=== PATIENT | female | born 1955 | race Caucasian/White ===

== ENCOUNTER 2025-04-25 18:27 | Inpatient (IN) | payer OTHER, MEDICARE ==
[~2025-04-25] VITALS: Ht 165.1 cm; Wt 63.1 kg
[2025-04-25] MEDS ORDERED: Morphine Sulfate 4 MG/1 ML Injection IV ONE (19:15)
[2025-04-25] MEDS ORDERED: HYDROmorphone HCl/Pf 1MG SYR IV ONE (19:30)
[2025-04-25 19:52] LABS: BASOPHILS ABSOLUTE AUTO 0.07 K/mm3 (0.00-0.23); BASOPHILS PERCENT AUTO 1 % (0-2); EOSINOPHILS ABSOLUTE AUTO 0.08 K/mm3 (0.00-0.68); EOSINOPHILS PERCENT AUTO 1 % (0-6); Hematocrit 37.1 % (33.0-51.0); Hemoglobin 11.9 g/dL (11.5-16.0); IMMATURE GRAN ABSOLUTE AUTO 0.05 K/mm3 (0.00-0.10); IMMATURE GRAN PERCENT AUTO 0 % (0-1); LYMPHOCYTES ABSOLUTE AUTO 1.10 K/mm3 (0.84-5.20); LYMPHOCYTES PERCENT AUTO 8 % (21-46); MONOCYTES ABSOLUTE AUTO 0.46 K/mm3 (0.16-1.47); MONOCYTES PERCENT AUTO 3 % (4-13); Mean Corpuscular HGB Conc 32.1 g/dL (31.5-36.5); Mean Corpuscular Volume 101 fL (80-100); NEUTROPHILS ABSOLUTE AUTO 12.78 K/mm3 (1.96-9.15); NEUTROPHILS PERCENT AUTO 88 % (41-73); NRBC ABSOLUTE 0.00 K/mm3 (0.00-0.02); NRBC Auto 0.0 /100 WBC (0.0-0.2); Platelet Count 234 K/mm3 (150-400); RDW Coefficient Variation 12.3 % (11.7-14.2); RDW Standard Deviation 45.8 fL (35.1-46.3)
[2025-04-25] MEDS ORDERED: NS 1,000 ML IV ONE (20:07)
[2025-04-25 20:09] LABS: Alanine Aminotransfer (ALT/SGP 22.0 U/L (12-78); Albumin, Blood 3.6 g/dL (3.4-5.0); Albumin/Globulin Ratio 1.1 (0.8-1.8); Anion Gap 10.0 mmol/L (3-11); Aspartate Aminotrans (AST/SGOT 33.0 U/L (12-37); Bilirubin, Total 0.2 mg/dL (0.1-1.0); Blood Urea Nitrogen 29.0 mg/dL (8-24); CO2, Blood 22.0 mmol/L (21-32); Calcium, Blood 9.0 mg/dL (8.5-10.1); Chloride, Blood 109.0 mmol/L (98-108); Creatinine, Blood 0.86 mg/dL (0.40-1.00); Globulin, Blood 3.2 g/dL (2.2-4.0); Glucose, Blood 110.0 mg/dL (70-99); Potassium, Blood 4.0 mmol/L (3.5-5.5); Sodium, Blood 137.0 mmol/L (136-145); Total Protein, Blood 6.8 g/dL (6.4-8.2)
[2025-04-25] MEDS ORDERED: NS 1,000 ML IV SCH ×3 (20:10→20:50)
[2025-04-25] MEDS ORDERED: Ondansetron HCl 2 MG / ML 2ML Vial IV PRN (20:50)
[2025-04-25] MEDS ORDERED: OxyCODONE 5 mg/Acetamin 325 mg TABLET PO PRN (20:50)
[2025-04-25] MEDS ORDERED: Metoclopramide HCl 5MG / ML 2ML Vial IV PRN (20:55)
[2025-04-25] MEDS ORDERED: FentaNYL Citrate 50 MCG/ML 2 ML Injection IV PRN (20:55)
[2025-04-25] MEDS ORDERED: Ketorolac Tromethamine 15mg Vial IV PRN (21:10)
--- NOTE | 2025-04-25 21:50 | NUR ---
PT ARRIVES TO UNIT FROM ED ON [place]. PT C/O PAIN TO LEFT LEG WITH MOVEMENT AND THROBBING. PT CHG BATH DEFERRED DUE TO PAIN; PT EDUCATED ON PLAN OF CARE WITH COMPLETING PRIOR TO END OF SHIFT.
[2025-04-25 21:55] LABS: Hematocrit 31.3 % (33.0-51.0); Hemoglobin 10.1 g/dL (11.5-16.0)
[2025-04-25] MEDS ORDERED: Ketorolac Tromethamine 15mg Vial IV ONE (22:00)
[2025-04-25 22:10] VITALS: BP 127/57
[2025-04-25] MEDS ORDERED: Prinivil10 MG PO (22:31)
[2025-04-25 23:04] LABS: Calcium, Ionized (POC) 1.20 mmol/L (1.10-1.46); Chloride (POC) 108 mmol/L (98-108); Creatinine (POC) 0.9 mg/dL (0.6-1.0); Glucose (ISTAT POC) 128 mg/dL (70-99); Hematocrit (POC) 32.0 % (36.0-46.0); Hemoglobin (POC) 10.9 g/dL (12.0-16.0); Potassium (POC) 4.1 mmol/L (3.5-5.5); Sodium (POC) 140 mmol/L (135-148); Total CO2 (POC) 21 mmol/L (21-32)
[2025-04-25 23:52] LABS: Hematocrit 32.2 % (33.0-51.0); Hemoglobin 10.3 g/dL (11.5-16.0)
[2025-04-25 23:53] VITALS: BP 115/46
[2025-04-26] VITALS (12 sets, daily range): BP systolic 92–128; BP diastolic 44–61
--- NOTE | 2025-04-26 02:35 | NUR ---
RN TO ROOM TO ROUND; PT C/O PAIN. RN TO MEDICATE PER MAR.
--- NOTE | 2025-04-26 04:30 | NUR ---
SHIFT SUMMARY NO ACUTE EVENTS DURING SHIFT. PT MEDICATED DURING SHIFT FOR PAIN. PT NPO IN ANTICIPATION FOR SURGERY TODAY TO REPAIR LEFT FEMUR FX. PT SLEPT MINIMALLY DURING SHIFT. PT WITH SERIAL H&H THAT REMAINED STABLE. PT LEFT PROXIMAL THIGH WITH SWELLING PRIOR TO ARRIVAL ON FLOOR THAT HAS REMAINED UNCHANGED AT THIS TIME.
[2025-04-26 05:24] LABS: Hematocrit 30.2 % (33.0-51.0); Hemoglobin 9.7 g/dL (11.5-16.0); Mean Corpuscular HGB Conc 32.1 g/dL (31.5-36.5); Mean Corpuscular Volume 101 fL (80-100); NRBC ABSOLUTE 0.00 K/mm3 (0.00-0.02); NRBC Auto 0.0 /100 WBC (0.0-0.2); Platelet Count 206 K/mm3 (150-400); RDW Coefficient Variation 12.4 % (11.7-14.2); RDW Standard Deviation 46.5 fL (35.1-46.3)
[2025-04-26 05:42] LABS: Anion Gap 8.0 mmol/L (3-11); Blood Urea Nitrogen 22.0 mg/dL (8-24); CO2, Blood 24.0 mmol/L (21-32); Calcium, Blood 7.9 mg/dL (8.5-10.1); Chloride, Blood 113.0 mmol/L (98-108); Creatinine, Blood 0.69 mg/dL (0.40-1.00); Glucose, Blood 106.0 mg/dL (70-99); Potassium, Blood 3.7 mmol/L (3.5-5.5); Sodium, Blood 141.0 mmol/L (136-145)
[2025-04-26] MEDS ORDERED: Midazolam HCl 1MG / ML 2ML Vial ONE (09:17)
[2025-04-26] MEDS ORDERED: Albuterol 2.5 MG/3 ML VIAL INH PRN (09:30)
[2025-04-26] MEDS ORDERED: Ondansetron HCl 2 MG / ML 2ML Vial IV PRN ×2 (09:30→10:00)
[2025-04-26] MEDS ORDERED: FentaNYL Citrate 50 MCG/ML 2 ML Injection IV PRN ×2 (09:30)
[2025-04-26] MEDS ORDERED: HYDROmorphone HCl/Pf 1MG SYR IV PRN ×2 (09:30→10:00)
[2025-04-26] MEDS ORDERED: Bupivacaine 0.5% W/EPI 1:200000 SDV 30 ML Vial ONE (09:32)
[2025-04-26] MEDS ORDERED: Tranexamic Acid 100 ML IV SCH (09:35)
[2025-04-26] MEDS ORDERED: CeFAZolin Sodium 2,000 MG in NS 100 ML IV SCH ×2 (09:35→18:00)
--- NOTE | 2025-04-26 09:53 | NUR ---
PT TO PACU AT 0905 VIA BED FROM RM 215 AT 0905 IN STABLE CONDITION. APPEARS NERVOUS/ANXIOUS. WARM BLANKETS PLACED FOR COMFORT & REASSURED SHE WAS SAFE. NOW APPEARS LESS ANXIOUS. AFEBRILE/VSS. SURG PACK COMPLETE. SURGICAL HAT/PAS SLEEVE TO RLE/BP CUFF PLACED. LR AT TKO. RESTING QUIETLY. NO COMPLAINTS.
[2025-04-26] MEDS ORDERED: Naloxone HCl 0.4MG / ML 1ML Vial IV PRN (10:00)
[2025-04-26] MEDS ORDERED: Midazolam HCl 1MG / ML 2ML Vial IV ONE (10:00)
[2025-04-26] MEDS ORDERED: D5W-1/2NS KCl 20mEq 1,000 ML IV SCH (10:00)
--- NOTE | 2025-04-26 10:01 | NUR ---
PT TO OR 4 VIA BED IN STABLE CONDITION.
[2025-04-26] MEDS ORDERED: Magnesium Hydroxide Conc 10 ML UDC PO PRN (10:05)
[2025-04-26] MEDS ORDERED: Ondansetron HCl 2 MG / ML 2ML Vial ONE (10:24)
[2025-04-26] MEDS ORDERED: Dexamethasone Sod Phos 10 MG/ML 1ML VIAL ONE (10:24)
[2025-04-26] MEDS ORDERED: Phenylephrine HCl 100 MCG/ML-NS 10MLSYR (1MG/10ML) ONE ×2 (10:35→10:55)
[2025-04-26] MEDS ORDERED: FentaNYL Citrate 50 MCG/ML 2 ML Injection ONE (12:21)
--- NOTE | 2025-04-26 18:41 | NUR ---
SHIFT SUMMARY PT A&OX4 ABLE TO MAKE NEEDS KNOWN. HAD LEFT FEMUR NAILING PROCEDURE TODAY. PT STATES SOME RESIDUAL NUMBING R/T NERVE BLOCK. PT C/O PAIN, MANAGED WITH PRN DILAUDED AND FENTANYL, PT STATES PERCOCET IS INEFFECTIVE. PT WEANING OFF OF O2 DOWN TO 1L AND O2 SAT>93. CALL LIGHT IN REACH.
[2025-04-26] MEDS ORDERED: NS 1,000 ML IV SCH (20:10)
[2025-04-27 04:01] VITALS: BP 116/49
--- NOTE | 2025-04-27 04:25 | NUR ---
SHIFT SUMMARY PT POD #1 FOR LEFT FEMUR NAILING AFTER GLF RESULTING IN FRACTURE ON 04/25/25. PT PRESSURE DRESSING X3 CDI OF THIS NOTE. PT ONLY VOIDS 2X PER DAY AT BASELINE AND WAS STRAIGHT CATHETERIZED IN PACU WITH 750 OUT. PT VOIDED ON BEDPAN AND POST VOID RESIDUAL WAS OVER 500mL. PT REQUESTED TO USE PUREWICK INSTEAD OF ANOTHER CATHETER AND WAS ABLE TO VOID HOWEVER THE PUREWICK WAS DISLODGED WHILE SHE WAS VOIDING AND ONLY SOME WAS COLLECTED TO MEASURE. PT TOLERATING REGULAR DIET. PT REPORTS PERCOCET ARE NOT WORKING FOR PAIN RELIEF AND PT WAS MEDICATED WITH IV DILAUDID.
[2025-04-27 05:20] LABS: BASOPHILS ABSOLUTE AUTO 0.01 K/mm3 (0.00-0.23); BASOPHILS PERCENT AUTO 0 % (0-2); EOSINOPHILS ABSOLUTE AUTO 0.00 K/mm3 (0.00-0.68); EOSINOPHILS PERCENT AUTO 0 % (0-6); Hematocrit 21.4 % (33.0-51.0); Hemoglobin 6.9 g/dL (11.5-16.0); IMMATURE GRAN ABSOLUTE AUTO 0.04 K/mm3 (0.00-0.10); IMMATURE GRAN PERCENT AUTO 0 % (0-1); LYMPHOCYTES ABSOLUTE AUTO 0.92 K/mm3 (0.84-5.20); LYMPHOCYTES PERCENT AUTO 9 % (21-46); MONOCYTES ABSOLUTE AUTO 0.81 K/mm3 (0.16-1.47); MONOCYTES PERCENT AUTO 8 % (4-13); Mean Corpuscular HGB Conc 32.2 g/dL (31.5-36.5); Mean Corpuscular Volume 99 fL (80-100); NEUTROPHILS ABSOLUTE AUTO 8.93 K/mm3 (1.96-9.15); NEUTROPHILS PERCENT AUTO 83 % (41-73); NRBC ABSOLUTE 0.00 K/mm3 (0.00-0.02); NRBC Auto 0.0 /100 WBC (0.0-0.2); Platelet Count 158 K/mm3 (150-400); RDW Coefficient Variation 12.2 % (11.7-14.2); RDW Standard Deviation 44.3 fL (35.1-46.3)
[2025-04-27 05:44] LABS: Anion Gap 9.0 mmol/L (3-11); Blood Urea Nitrogen 10.0 mg/dL (8-24); CO2, Blood 25.0 mmol/L (21-32); Calcium, Blood 7.5 mg/dL (8.5-10.1); Chloride, Blood 108.0 mmol/L (98-108); Creatinine, Blood 0.58 mg/dL (0.40-1.00); Glucose, Blood 155.0 mg/dL (70-99); Magnesium, Blood 1.7 mg/dL (1.6-2.4); Potassium, Blood 3.6 mmol/L (3.5-5.5); Sodium, Blood 138.0 mmol/L (136-145)
[2025-04-27 07:05] VITALS: BP 126/62
--- NOTE | 2025-04-27 08:25 | NUR ---
Pt refusing blood transfusion at this time. pt requests blood count recheck later today. Dr love notified.
[2025-04-27 15:15] VITALS: BP 123/56
[2025-04-27 19:52] VITALS: BP 122/56
[2025-04-28] VITALS (8 sets, daily range): BP systolic 116–141; BP diastolic 44–70
--- NOTE | 2025-04-28 04:01 | NUR ---
SHIFT SUMMARY POD #2 FOR LEFT FEMUR FRACTURE REPAIR. PRESSURE DRESSING CDI. NO ACUTE EVENTS OVERNIGHT. DURING DAY SHIFT, PT DECLINED PRBC TRANSFUSION; PENDING REPEAT H&H LEVELS. PT TO BE TTWB AND MOBILIZE WITH PT. PT USES BEDPAN AND HAS MORE OUTPUT THAN DURING PREVIOUS NOC SHIFT. PT REPORTS THAT OXYCODONE IS NOT HELPFUL; PT EDUCATED ON IMPORTANCE OF TAKING ORAL PAIN MEDICATION EARLIER TO ATTEMPT BETTER PAIN CONTROL.
[2025-04-28 04:42] LABS: BASOPHILS ABSOLUTE AUTO 0.03 K/mm3 (0.00-0.23); BASOPHILS PERCENT AUTO 0 % (0-2); EOSINOPHILS ABSOLUTE AUTO 0.20 K/mm3 (0.00-0.68); EOSINOPHILS PERCENT AUTO 2 % (0-6); Hematocrit 19.1 % (33.0-51.0); Hemoglobin 6.3 g/dL (11.5-16.0); IMMATURE GRAN ABSOLUTE AUTO 0.03 K/mm3 (0.00-0.10); IMMATURE GRAN PERCENT AUTO 0 % (0-1); LYMPHOCYTES ABSOLUTE AUTO 2.44 K/mm3 (0.84-5.20); LYMPHOCYTES PERCENT AUTO 23 % (21-46); MONOCYTES ABSOLUTE AUTO 0.92 K/mm3 (0.16-1.47); MONOCYTES PERCENT AUTO 9 % (4-13); Mean Corpuscular HGB Conc 33.0 g/dL (31.5-36.5); Mean Corpuscular Volume 100 fL (80-100); NEUTROPHILS ABSOLUTE AUTO 6.88 K/mm3 (1.96-9.15); NEUTROPHILS PERCENT AUTO 66 % (41-73); NRBC ABSOLUTE 0.00 K/mm3 (0.00-0.02); NRBC Auto 0.0 /100 WBC (0.0-0.2); Platelet Count 138 K/mm3 (150-400); RDW Coefficient Variation 12.5 % (11.7-14.2); RDW Standard Deviation 45.1 fL (35.1-46.3)
[2025-04-28 05:05] LABS: Anion Gap 8.0 mmol/L (3-11); Blood Urea Nitrogen 9.0 mg/dL (8-24); CO2, Blood 28.0 mmol/L (21-32); Calcium, Blood 7.7 mg/dL (8.5-10.1); Chloride, Blood 107.0 mmol/L (98-108); Creatinine, Blood 0.58 mg/dL (0.40-1.00); Glucose, Blood 107.0 mg/dL (70-99); Potassium, Blood 3.6 mmol/L (3.5-5.5); Sodium, Blood 139.0 mmol/L (136-145)
--- NOTE | 2025-04-28 06:14 | NUR ---
HGB DECREASE LABS RESULTED; ATTEMPTED CALLS TO PROVIDER TO DISCUSS ORDER FOR PRBC AND CONSENT FROM YESTERDAY. AWAITING CALL BACK.
--- NOTE | 2025-04-28 06:38 | NUR ---
CALL BACK FROM PROVIDER OK TO USE CONSENT FOR BLOOD PRODUCTS; ORDERS OBTAINED TO TRANSFUSE ONE UNIT PRBCs AND REDRAW H&H 30 MINUTES POST TRANSFUSION. WILL PASS ALONG TO DAY SHIFT
[2025-04-28] MEDS ORDERED: NS 250 ML IV PRN (07:55)
[2025-04-28 12:27] LABS: Hematocrit 23.1 % (33.0-51.0); Hemoglobin 7.7 g/dL (11.5-16.0)
--- NOTE | 2025-04-28 17:22 | NUR ---
SHIFT SUMMARY POD2 L HIP ORIF, A/OX4, VSS, TOLERATING PO, PAIN MANAGED PER EMAR, PRBC GIVEN TODAY PER ORDER, SHE WORKED WITH PT AND OT TODAY. AWAITING DC PLACEMENT. NO ACUTE EVENTS THIS SHIFT, CALL LIGHT IN REACH.
--- NOTE | 2025-04-29 04:00 | NUR ---
SHIFT SUMMARY NO ACUTE EVENTS OVERNIGHT. PT REFUSES REPOSITIONING ATTEMPTS MADE BY STAFF. PT MEDICATED FOR PAIN PER EMAR. PT PRESSURE DRESSINGS CDI; AQUACEL DRESSINGS TO BE APPLIED PER ORDER. PT DECLINES SNF PLACEMENT AND IS REQUESTING TO GO HOME WITH HOME HEALTH. PT WORKED WITH THERAPY DURING DAY SHIFT AND WAS ABLE TO DANGLE AT BEDSIDE. PT ON ROOM AIR AND TOLERATING PO INTAKE.
[2025-04-29 05:11] VITALS: BP 132/65
[2025-04-29 05:58] LABS: BASOPHILS ABSOLUTE AUTO 0.04 K/mm3 (0.00-0.23); BASOPHILS PERCENT AUTO 0 % (0-2); EOSINOPHILS ABSOLUTE AUTO 0.08 K/mm3 (0.00-0.68); EOSINOPHILS PERCENT AUTO 1 % (0-6); Hematocrit 24.0 % (33.0-51.0); Hemoglobin 7.8 g/dL (11.5-16.0); IMMATURE GRAN ABSOLUTE AUTO 0.03 K/mm3 (0.00-0.10); IMMATURE GRAN PERCENT AUTO 0 % (0-1); LYMPHOCYTES ABSOLUTE AUTO 1.74 K/mm3 (0.84-5.20); LYMPHOCYTES PERCENT AUTO 17 % (21-46); MONOCYTES ABSOLUTE AUTO 0.79 K/mm3 (0.16-1.47); MONOCYTES PERCENT AUTO 8 % (4-13); Mean Corpuscular HGB Conc 32.5 g/dL (31.5-36.5); Mean Corpuscular Volume 95 fL (80-100); NEUTROPHILS ABSOLUTE AUTO 7.74 K/mm3 (1.96-9.15); NEUTROPHILS PERCENT AUTO 74 % (41-73); NRBC ABSOLUTE 0.00 K/mm3 (0.00-0.02); NRBC Auto 0.0 /100 WBC (0.0-0.2); Platelet Count 154 K/mm3 (150-400); RDW Coefficient Variation 14.4 % (11.7-14.2); RDW Standard Deviation 49.8 fL (35.1-46.3)
--- NOTE | 2025-04-29 06:01 | NUR ---
DRESSING CHANGE PRESSURE TAPE, GAUZE REMOVED. INCISIONS CLEANSED WITH WOUND CLEANSER AND DRIED. AQUACEL X3 PLACED TO LEFT THIGH PER ORDERS. PROXIMAL SITE HAD SMALL AMOUNT OF BLEEDING AT INCISION AND BRUISE AROUND INCISION WHEN ORIGINAL DRESSING REMOVED. NO REDNESS OR WARMTH NOTED. PT TOLERATED THE PROCEDURE WITHOUT COMPLAINT.
[2025-04-29 06:38] LABS: Alanine Aminotransfer (ALT/SGP 19.0 U/L (12-78); Albumin, Blood 2.4 g/dL (3.4-5.0); Albumin/Globulin Ratio 0.8 (0.8-1.8); Anion Gap 7.0 mmol/L (3-11); Aspartate Aminotrans (AST/SGOT 28.0 U/L (12-37); Bilirubin, Total 0.5 mg/dL (0.1-1.0); Blood Urea Nitrogen 8.0 mg/dL (8-24); CO2, Blood 30.0 mmol/L (21-32); Calcium, Blood 8.3 mg/dL (8.5-10.1); Chloride, Blood 103.0 mmol/L (98-108); Creatinine, Blood 0.56 mg/dL (0.40-1.00); Globulin, Blood 3.2 g/dL (2.2-4.0); Glucose, Blood 113.0 mg/dL (70-99); Potassium, Blood 3.3 mmol/L (3.5-5.5); Sodium, Blood 137.0 mmol/L (136-145); Total Protein, Blood 5.6 g/dL (6.4-8.2)
[2025-04-29 07:21] VITALS: BP 133/63
--- NOTE | 2025-04-29 08:04 | NUR ---
PATIENT DECLINED TO GET UP TO CHAIR WHEN OFFERED.
[2025-04-29 15:15] VITALS: BP 116/45
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
--- NOTE | 2025-04-29 18:12 | NUR ---
SHIFT SUMMARY PT IS A/OX4, ABLE TO MAKE NEEDS KNOWN. VSS, ON ROOM AIR. PT IS VOIDING WELL, TOLERATING PO INTAKE. NO N/V. PAIN MANAGED PER EMAR. PT WORKED WITH PHYSICAL AND OCCUPATIONAL THERAPY TODAY. PT AMBULATED 1X FWW AND GB. SURGICAL SITE DRESSING IS C/D/I.
[2025-04-29 19:31] VITALS: BP 120/63
[2025-04-30 03:53] VITALS: BP 129/63
[2025-04-30 05:35] LABS: Anion Gap 7.0 mmol/L (3-11); Blood Urea Nitrogen 10.0 mg/dL (8-24); CO2, Blood 29.0 mmol/L (21-32); Calcium, Blood 8.2 mg/dL (8.5-10.1); Chloride, Blood 103.0 mmol/L (98-108); Creatinine, Blood 0.49 mg/dL (0.40-1.00); Glucose, Blood 119.0 mg/dL (70-99); Potassium, Blood 3.3 mmol/L (3.5-5.5); Sodium, Blood 136.0 mmol/L (136-145)
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
[2025-04-30 07:47] VITALS: BP 133/59
[2025-04-30] MEDS ORDERED: OxyCODONE 5 mg/Acetamin 325 mg TABLET PO PRN (10:05)
[2025-04-30 14:53] VITALS: BP 94/58
--- NOTE | 2025-04-30 15:57 | NUR ---
SHIFT SUMMARY NO ACUTE CHANGES. PT DOING WELL. HAS BEEN UP IN CHAIR TODAY AND AMBULATED HALLWAY WITH THERAPY. 1 SBA USING FWW/GB. 1 PERCOCET FOR PAIN CONTROL. PRISCILLA REG DIET. AQUACEL DRESSING TO LEFT HIP REMAINS CDI. PLAN TO DISCHARGE HOME WITH HOME HEALTH POSSIBLY TOMORROW. PT USES CALL LIGHT APPROPRIATELY.
[2025-04-30] MEDS ORDERED: Enoxaparin 40 MG/0.4 ML SYR SC SCH (16:00)
[2025-04-30 20:07] VITALS: BP 120/60
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
[2025-05-01 05:58] VITALS: BP 120/53
[2025-05-01 07:19] VITALS: BP 118/45
[2025-05-01 08:50] LABS: Hematocrit 25.2 % (33.0-51.0); Hemoglobin 8.2 g/dL (11.5-16.0)
[2025-05-01 09:09] LABS: Anion Gap 7.0 mmol/L (3-11); Blood Urea Nitrogen 13.0 mg/dL (8-24); CO2, Blood 29.0 mmol/L (21-32); Calcium, Blood 8.6 mg/dL (8.5-10.1); Chloride, Blood 103.0 mmol/L (98-108); Creatinine, Blood 0.57 mg/dL (0.40-1.00); Glucose, Blood 106.0 mg/dL (70-99); Magnesium, Blood 2.0 mg/dL (1.6-2.4); Potassium, Blood 3.4 mmol/L (3.5-5.5); Sodium, Blood 136.0 mmol/L (136-145)
[2025-05-01] MEDS ORDERED: Potassium Chloride 10 Meq Tablet SA PO ONE (11:10)
--- NOTE | 2025-05-01 11:31 | NUR ---
Pt. is awake and sitting in a chair when she welcomed my visit. Pt. verbalized an expectatoin that she woudl be discharged home sometime today. Listen with interest. Pt. displayed evidence of being confidant about her opportunity to rehab at home. Prayed with the Pt. pt. verbalized gratitude for the spiritual care visit.
[2025-05-01] MEDS ORDERED: ENOX40I SC (11:36)
[2025-05-01] MEDS ORDERED: DOCU100 PO (11:40)
[2025-05-01] MEDS ORDERED: Acetaminophen650 M1 PO (11:41)
[2025-05-01] MEDS ORDERED: ONDA4 PO (11:41)
[2025-05-01] MEDS ORDERED: Percocet 5-3251 EACH PO (11:42)
[2025-05-01] MEDS ORDERED: MIRALAX17 GM PO (11:44)
--- NOTE | 2025-05-01 13:30 | NUR ---
DISCHARGE NOTE PT TOLERATING INTAKE, VOIDING WELL. NO N/V, PAIN MANAGED PER EMAR. EDUCATION PROVIDED ON DRESSING CHANGE. PT SBA W/ FWW AND GB, IS ABLE TO FOLLOW WB PRECAUTIONS. VSS. PT VERBALIZED UNDERSTANDING OF DC INSTRUCTIONS. SENT SCRIPT W/ HANS. ESCORTED OUT VIA WC BY SPOUSE AT 1345.
== END 2025-05-01 14:08 | disposition home health service (06) | DRG 481 ==
LOC: ER 18:27 → SURS 20:47
PROVIDERS: Internal Medicine; Nurse Practitioner Acute Care; Orthopaedic Surgery; Student in an Organized Health Care Education/Training Program; ADMIT Internal Medicine
PROC: 30233N1 Transfusion of Nonautologous Red Blood Cells into Peripheral Vein, Percutaneous Approach (ICD-10-PCS; 2025-04-26)
PROC: 3E03329 Introduction of Other Anti-infective into Peripheral Vein, Percutaneous Approach (ICD-10-PCS; 2025-04-26)
PROC: 0QS704Z Reposition Left Upper Femur with Internal Fixation Device, Open Approach (ICD-10-PCS; principal; 2025-04-26 12:15)
DX: S72.142A Displaced intertrochanteric fracture of left femur, initial encounter for closed fracture (principal); D62 Acute posthemorrhagic anemia; I10 Essential (primary) hypertension; E87.6 Hypokalemia; D72.828 Other elevated white blood cell count; I95.9 Hypotension, unspecified; Z90.49 Acquired absence of other specified parts of digestive tract; Z98.890 Other specified postprocedural states; Z79.899 Other long term (current) drug therapy; W01.0XXA Fall on same level from slipping, tripping and stumbling without subsequent striking against object, initial encounter
CPT/HCPCS: 36415; 36430; 73502; 80047; 80048; 80053; 83735; 85014; 85018; 85025; 85027; 86850; 86900; 86901; 86923; 94760; 94762; 96374; 96375; 97110; 97116; 97162; 97165; 97530; 97535; 99285-25; A9270; J0690; J1100; J1171; J1650; J2250; J2270; J2371; J2405; J2704; J3010; J7030; J7050; J7120; P9016